=== PATIENT | female | born 1950 | race Caucasian/White ===

== ENCOUNTER 2023-12-30 18:54 | Inpatient (IN) | payer OTHER ==
[~2023-12-30] VITALS: Ht 162.6 cm; Wt 66.7 kg
[2023-12-30] MEDS ORDERED: CEFEPIME 1 GM VIAL ONE (19:13)
[2023-12-30] MEDS: IV NS 0.9% 1,000 ML BAG IV ONE (19:20)
[2023-12-30] MEDS: CEFEPIME 1 GM in IV D5W 50 ML IV ONE (19:36)
[2023-12-30 19:53] LABS: BASOPHILS % (AUTO) 0.1 % (0.0-2.0); EOSINOPHILS % (AUTO) 0.1 % (0.0-6.0); HEMATOCRIT 41 % (33-45); HEMOGLOBIN 13.7 g/dL (11.5-14.8); LYMPHOCYTES # (AUTO) 2.6 K/uL (0.8-4.8); LYMPHOCYTES % (AUTO) 11.5 % (20.0-44.0); MEAN CORPUSCULAR HEMOGLOBIN 30 PG (26.0-33.0); MEAN CORPUSCULAR HGB CONC 34 g/dl (31.0-36.0); MEAN CORPUSCULAR VOLUME 89 fL (82-100); MONOCYTES # (AUTO) 2.8 K/uL (0.1-1.30); MONOCYTES % (AUTO) 12.6 % (2.0-12.0); NEUTROPHILS % (AUTO) 75.7 % (43.0-81.0); PLATELET COUNT (AUTO) 306 K/uL (150-450); RED BLOOD CELL COUNT(AUTO) 4.58 MIL/uL (4.0-5.2); RED CELL DISTRIBUTION WIDTH 13.8 % (11.5-15.0); WHITE BLOOD COUNT (AUTO) 22.5 K/uL (4.3-11.0)
[2023-12-30 19:59] LABS: APPEARANCE,URINE CLEAR (CLEAR); BILIRUBIN,URINE 1+ (NEGATIVE); BLOOD, URINE NEGATIVE Ery/uL (NEGATIVE); COLOR,URINE YELLOW (YELLOW); KETONES,URINE 3+ mg/dL (NEGATIVE); LEUKOCYTE ESTERASE ,URINE NEGATIVE (NEGATIVE); NITRITE, URINE NEGATIVE (NEGATIVE); PROTEIN,URINE NEGATIVE (NEGATIVE); UGLUCOSE 3+ mg/dL (NEGATIVE)
[2023-12-30 20:03] LABS: ADD URINE CULTURE NO; BACTERIA,URINE None seen /HPF (None Seen); HYALINE CASTS, URINE Few /LPF (None Seen); MUCUS,URINE Few /LPF (None Seen); RBC,URINE 0-2 /HPF (0-2); WBC,URINE 0-2 /HPF (0-3)
[2023-12-30 20:07] LABS: INR 1.05 (0.91-1.10); PARTIAL THROMBOPLASTIN TIME 25.1 SEC (24.3-34.3); PROTHROMBIN TIME 11.1 SECS (9.2-11.1)
[2023-12-30 20:08] LABS: ALANINE AMINOTRANSFERASE 16 U/L (12-78); ALBUMIN 2.3 g/dL (3.4-5.0); ALKALINE PHOSPHATASE 83 U/L (46-116); ASPARTATE AMINOTRANSFERASE 16 U/L (15-37); BILIRUBIN,DIRECT 0.3 mg/dL (0.0-0.2); BILIRUBIN,TOTAL 1.2 mg/dL (0.2-1.0); CALCIUM, SERUM 8.8 mg/dL (8.5-10.1); CARBON DIOXIDE 21 mmol/L (21-32); CHLORIDE 101 mmol/L (98-107); CREATININE 0.7 mg/dL (0.6-1.3); GLUCOSE 209 mg/dL (74-106); POTASSIUM 3.3 mmol/L (3.5-5.1); SODIUM SERUM 135 mmol/L (136-145); TOTAL PROTEIN, SERUM 5.5 g/dL (6.4-8.2); UREA NITROGEN, BLOOD 21 mg/dL (7-18)
[2023-12-30 20:52] LABS: ANISOCYTOSIS 1+; LYMPHOCYTES % (MANUAL) 14 % (16-48); MONOCYTES % (MANUAL) 10 % (0-11.0); NEUTROPHILS % (MANUAL) 76 (42-76); PLATELET ESTIMATE ADEQUATE
[2023-12-30] MEDS ORDERED: ONDANSETRON HCL/PF 4 MG/2 ML VIAL IVP PRN (21:30)
[2023-12-30] MEDS ORDERED: Z GUARD REMEDY 4 OZ OINT TP PRN (21:30)
[2023-12-30] MEDS ORDERED: MAGNESIUM HYDROXIDE 30 ML UDC PO PRN (21:30)
[2023-12-30] MEDS ORDERED: MAG HYDROX/AL HYDROX/SIMETH 30 ML UDC PO PRN (21:30)
[2023-12-30] MEDS ORDERED: DEXTROSE 50%-WATER 50 ML DISP.SYRIN IV PRN (22:00)
[2023-12-30] MEDS: IV NS 0.9% 1,000 ML IV SCH (22:25)
[2023-12-30] MEDS: IV NS 0.9% 250 ML IV ONE (22:25)
[2023-12-30] MEDS ORDERED: POTASSIUM CHLORIDE 20 MEQ POWDER PACKET ONE (23:13)
[2023-12-30] MEDS: POTASSIUM CHLORIDE 20 MEQ POWDER PACKET PO ONE (23:14)
[2023-12-30] MEDS: ENOXAPARIN SODIUM 40 MG/0.4 ML DISP.SYRIN SQ SCH (23:24)
[2023-12-30] MEDS: BLOOD SUGAR DIAGNOSTIC 1 EACH STRIP IN SCH (23:31)
[2023-12-30] MEDS ORDERED: VANCOMYCIN 1 GM /D5W 250 ML PB IV ONE (23:35)
[2023-12-30] MEDS: INSULIN REGULAR, HUMAN 100 UNIT/ML 3 ML VIAL SQ PRN (23:38)
[2023-12-30] MEDS: VANCOMYCIN 1 GM in IV D5W 250 ML IV ONE (23:42)
[2023-12-31] VITALS (7 sets, daily range): BP systolic 100–139; BP diastolic 64–106; TEMP 97.7–99.3; O2SAT 97–100
[2023-12-31 06:15] LABS: BASOPHILS # (AUTO) 0.1 K/uL (0.0-0.2); BASOPHILS % (AUTO) 0.3 % (0.0-2.0); EOSINOPHILS % (AUTO) 0.1 % (0.0-6.0); HEMATOCRIT 43 % (33-45); HEMOGLOBIN 14.2 g/dL (11.5-14.8); LYMPHOCYTES # (AUTO) 1.1 K/uL (0.8-4.8); LYMPHOCYTES % (AUTO) 6.5 % (20.0-44.0); MEAN CORPUSCULAR HEMOGLOBIN 29 PG (26.0-33.0); MEAN CORPUSCULAR HGB CONC 33 g/dl (31.0-36.0); MEAN CORPUSCULAR VOLUME 88 fL (82-100); MONOCYTES # (AUTO) 0.8 K/uL (0.1-1.30); NEUTROPHILS # (AUTO) 14.7 K/uL (1.8-8.9); NEUTROPHILS % (AUTO) 88.1 % (43.0-81.0); PLATELET COUNT (AUTO) 295 K/uL (150-450); RED BLOOD CELL COUNT(AUTO) 4.88 MIL/uL (4.0-5.2); WHITE BLOOD COUNT (AUTO) 16.7 K/uL (4.3-11.0)
[2023-12-31 06:33] LABS: CALCIUM, SERUM 8.8 mg/dL (8.5-10.1); CARBON DIOXIDE 18 mmol/L (21-32); CHLORIDE 105 mmol/L (98-107); CREATININE 0.5 mg/dL (0.6-1.3); GLUCOSE 139 mg/dL (74-106); MAGNESIUM 2.1 mg/dL (1.8-2.4); PHOSPHORUS 2.1 mg/dL (2.5-4.9); POTASSIUM 3.5 mmol/L (3.5-5.1); SODIUM SERUM 139 mmol/L (136-145); UREA NITROGEN, BLOOD 14 mg/dL (7-18)
[2023-12-31] MEDS ORDERED: SITA100T PO (08:12)
[2023-12-31] MEDS ORDERED: OXYC10TA49 PO (08:12)
[2023-12-31] MEDS ORDERED: METF-442 PO (08:12)
[2023-12-31] MEDS ORDERED: DAPA10TA PO (08:12)
[2023-12-31] MEDS ORDERED: DILT120C87 PO (08:12)
[2023-12-31] MEDS ORDERED: SIMV-49 PO (08:12)
[2023-12-31] MEDS ORDERED: LOSA1TAB42 PO (08:12)
[2023-12-31] MEDS: VANCOMYCIN 750 MG in IV D5W 250 ML IV SCH (08:19)
[2023-12-31] MEDS: CEFEPIME 1 GM in IV D5W 50 ML IV SCH (08:19)
[2023-12-31] MEDS ORDERED: AMIODARONE 150 MG in IV D5W 100 ML IV ONE (08:30)
[2023-12-31] MEDS ORDERED: AMIODARONE 450 MG in IV D5W 250 ML IV PRN (08:30)
[2023-12-31] MEDS: AMIODARONE 150 MG in IV D5W 100 ML IV ONE (08:46)
[2023-12-31] MEDS: AMIODARONE 450 MG in IV D5W 241 ML IV PRN (09:07)
[2023-12-31] MEDS: ENOXAPARIN SODIUM 60 MG/0.6 ML DISP.SYRIN SQ SCH (09:25)
[2023-12-31] MEDS: NEUTRA PHOS 1 POWD.PACKET PO SCH (09:25)
[2023-12-31] MEDS: POTASSIUM CHLORIDE 20 MEQ TAB.PRT.SR PO SCH (09:25)
[2023-12-31] MEDS: ACETAMINOPHEN 325 MG TABLET PO PRN (13:33)
[2024-01-01] VITALS (17 sets, daily range): BP systolic 98–144; BP diastolic 60–100; TEMP 97.6–99.1; O2SAT 97–100
[2024-01-01 06:43] LABS: BASOPHILS % (AUTO) 0.2 % (0.0-2.0); EOSINOPHILS # (AUTO) 0.1 K/uL (0.0-0.7); EOSINOPHILS % (AUTO) 0.4 % (0.0-6.0); HEMATOCRIT 40 % (33-45); HEMOGLOBIN 13.4 g/dL (11.5-14.8); LYMPHOCYTES # (AUTO) 1.5 K/uL (0.8-4.8); LYMPHOCYTES % (AUTO) 10.1 % (20.0-44.0); MEAN CORPUSCULAR HEMOGLOBIN 29 PG (26.0-33.0); MEAN CORPUSCULAR HGB CONC 34 g/dl (31.0-36.0); MEAN CORPUSCULAR VOLUME 87 fL (82-100); MONOCYTES # (AUTO) 1.5 K/uL (0.1-1.30); MONOCYTES % (AUTO) 10.3 % (2.0-12.0); NEUTROPHILS # (AUTO) 11.6 K/uL (1.8-8.9); PLATELET COUNT (AUTO) 303 K/uL (150-450); RED BLOOD CELL COUNT(AUTO) 4.56 MIL/uL (4.0-5.2); RED CELL DISTRIBUTION WIDTH 14.1 % (11.5-15.0); WHITE BLOOD COUNT (AUTO) 14.7 K/uL (4.3-11.0)
[2024-01-01 06:47] LABS: ALANINE AMINOTRANSFERASE 33 U/L (12-78); ALBUMIN 1.9 g/dL (3.4-5.0); ALKALINE PHOSPHATASE 132 U/L (46-116); ASPARTATE AMINOTRANSFERASE 25 U/L (15-37); CALCIUM, SERUM 8.7 mg/dL (8.5-10.1); CARBON DIOXIDE 20 mmol/L (21-32); CHLORIDE 109 mmol/L (98-107); CREATININE 0.4 mg/dL (0.6-1.3); GLUCOSE 133 mg/dL (74-106); MAGNESIUM 2.1 mg/dL (1.8-2.4); PHOSPHORUS 1.9 mg/dL (2.5-4.9); POTASSIUM 3.5 mmol/L (3.5-5.1); SODIUM SERUM 142 mmol/L (136-145); TOTAL PROTEIN, SERUM 5.5 g/dL (6.4-8.2); UREA NITROGEN, BLOOD 11 mg/dL (7-18)
[2024-01-01] MEDS: IV NS 0.9% 1,000 ML IV PRN (08:44)
[2024-01-01] MEDS ORDERED: POTASSIUM PHOSPHATE MM 15 MMOL in IV NS 0.9% 250 ML IV SCH ×2 (09:30→10:00)
[2024-01-01] MEDS: DILTIAZEM HCL CD 240 MG PO SCH (09:44)
[2024-01-01] MEDS: K PHOS NEUTRAL 250 MG TABLET PO ONE (09:47)
[2024-01-01] MEDS: DIGOXIN INJ 0.5 MG/2 ML AMPUL IV SCH (11:34)
[2024-01-01] MEDS ORDERED: EPINEPHRINE (1:10,000) SYRINGE 1 MG/10 ML DISP.SYRIN ONE (16:30)
[2024-01-01] MEDS ORDERED: ATROPINE SULFATE 1 MG/10 ML DISP.SYRIN ONE (16:30)
[2024-01-01] MEDS ORDERED: CALCIUM CHLORIDE 1,000 MG/10 ML DISP.SYRIN ONE (16:30)
[2024-01-01] MEDS: FLECAINIDE ACETATE (100 MG) 100 MG TABLET PO SCH (17:22)
[2024-01-01] MEDS: APIXABAN 5 MG TABLET PO SCH (17:23)
[2024-01-01] MEDS ORDERED: APIX5TAB PO (19:12)
[2024-01-01] MEDS ORDERED: DILT240C88 PO (19:12)
[2024-01-01] MEDS ORDERED: FLEC100T3 PO (19:12)
[2024-01-01] MEDS ORDERED: VANCOMYCIN 1 GM in IV D5W 250ml IV SCH (20:00)
== END 2024-01-01 19:53 | disposition home or self-care (01) | DRG 871 ==
LOC: ER 18:57 → TELE1 21:38 → TELE-TD 21:45 → ICU 01-01 14:35
PROVIDERS: ATTEND Student in an Organized Health Care Education/Training Program
PROC: 5A2204Z Restoration of Cardiac Rhythm, Single (ICD-10-PCS; principal; 2024-01-01)
DX: A41.9 Sepsis, unspecified organism (principal); E43 Unspecified severe protein-calorie malnutrition; I48.91 Unspecified atrial fibrillation; E87.6 Hypokalemia; E11.9 Type 2 diabetes mellitus without complications; E78.5 Hyperlipidemia, unspecified; E86.0 Dehydration; E86.1 Hypovolemia; E88.09 Other disorders of plasma-protein metabolism, not elsewhere classified; F03.90 Unspecified dementia, unspecified severity, without behavioral disturbance, psychotic disturbance, mood disturbance, and anxiety; I10 Essential (primary) hypertension; Z20.822 Contact with and (suspected) exposure to COVID-19; R53.1 Weakness; Z68.25 Body mass index [BMI] 25.0-25.9, adult
CPT/HCPCS: 36415; 71045-TC; 80048-TC; 80053-TC; 80076-TC; 80202-TC; 81001; 82962-TC; 83605-TC; 83735-TC; 84100-TC; 84439-TC; 84443-TC; 84484-TC; 85025-TC; 85730-TC; 87040-TC; 87086-TC; 93307-TC; 93970-TC; A4223; A6403; G0378; J0171; J0282; J0461; J0692; J1160; J1650; J1815; J2704; J3370; J3371; J3490; J7030; J7050; J7060

== ENCOUNTER 2024-12-24 15:04 | Inpatient (IN) | payer OTHER ==
[~2024-12-24] VITALS: Ht 162.6 cm; Wt 57.2 kg
[~2024-12-24 15:04] MED LIST: APIX5TAB PO; DAPA10TA PO; DILT240C88 PO; FLEC100T3 PO; LOSA1TAB42 PO; METF-442 PO; OXYC10TA49 PO; SIMV-49 PO; SITA100T PO
[2024-12-24 15:46] LABS: PLATELET COUNT (AUTO) 331 K/uL (150-450); RED BLOOD CELL COUNT(AUTO) 4.95 MIL/uL (4.0-5.2); RED CELL DISTRIBUTION WIDTH 13.7 % (11.5-15.0); WHITE BLOOD COUNT (AUTO) 26.2 K/uL (4.3-11.0)
[2024-12-24] MEDS: IV NS 0.9% 500 ML BAG IV ONE (15:46)
[2024-12-24 16:03] LABS: APPEARANCE,URINE CLEAR (CLEAR); BLOOD, URINE Large Ery/uL (NEGATIVE); LEUKOCYTE ESTERASE ,URINE Negative (NEGATIVE); NITRITE, URINE NEGATIVE (NEGATIVE); UGLUCOSE Negative (NEGATIVE)
[2024-12-24 16:05] LABS: ADD URINE CULTURE NO; CALCIUM OXALATE CRYSTALS,UR Rare /HPF (None Seen); SQUAMOUS EPITHELIAL CELL,UR Moderate /HPF (None Seen)
[2024-12-24 16:06] LABS: ASPARTATE AMINOTRANSFERASE 26 U/L (15-37); CALCIUM, SERUM 9.2 mg/dL (8.5-10.1); CREATININE 0.9 mg/dL (0.6-1.3); NT-PRO BNP 961 pg/mL (0-125); TOTAL PROTEIN, SERUM 7.0 g/dL (6.4-8.2); UREA NITROGEN, BLOOD 28 mg/dL (7-18)
[2024-12-24 16:31] LABS: SODIUM SERUM 134 mmol/L (136-145)
[2024-12-24] MEDS ORDERED: PIPERACI/TAZO 3.375GM/D5W 50ML PB IV ONE (16:36)
[2024-12-24] MEDS: IV NS 0.9% 1,000 ML BAG IV ONE (16:47)
[2024-12-24] MEDS: PIPERACILLIN /TAZOBACTAM 3.375 G in IV D5W 50 ML IV ONE (16:48)
[2024-12-24] MEDS ORDERED: DILT240C88 PO (17:14)
[2024-12-24] MEDS ORDERED: FLEC100T2 PO (17:14)
[2024-12-24 18:38] VITALS: BP 166/90; TEMP 98.6; O2SAT 98
[2024-12-24] MEDS ORDERED: MAGNESIUM HYDROXIDE 30 ML UDC PO PRN (19:00)
[2024-12-24] MEDS ORDERED: ACETAMINOPHEN 325 MG TABLET PO PRN (19:00)
[2024-12-24] MEDS ORDERED: DOSING PER PHARMACY-ZOSYN IV 1 EA EA XX PRN (19:00)
[2024-12-24] MEDS ORDERED: ZOLPIDEM TARTRATE 5 MG TABLET PO PRN (19:00)
[2024-12-24] MEDS ORDERED: MAG HYDROX/AL HYDROX/SIMETH 30 ML UDC PO PRN (19:00)
[2024-12-24] MEDS ORDERED: oxyCODONE IR immediate release 5 MG TABLET PO PRN (19:30)
[2024-12-24] MEDS: IV NS 0.9% 1,000 ML IV PRN (20:11)
[2024-12-24 20:15] VITALS: BP 175/92; TEMP 98.2; O2SAT 99
[2024-12-24] MEDS: CEFTRIAXONE 1 G in IV D5W 50 ML IV SCH (20:42)
[2024-12-24] MEDS: METRONIDAZOLE 500MG/ NS 100ML 500 MG in PREMIX 1 EA IV SCH (21:41)
[2024-12-24] MEDS ORDERED: ZOSYN IVPB 3.375 G in IV D5W 50ml IV SCH (23:00)
[2024-12-24] MEDS: ONDANSETRON HCL/PF 4 MG/2 ML VIAL IVP PRN (23:15)
[2024-12-25 06:21] LABS: PLATELET COUNT (AUTO) 229 K/uL (150-450); RED BLOOD CELL COUNT(AUTO) 4.78 MIL/uL (4.0-5.2); RED CELL DISTRIBUTION WIDTH 13.5 % (11.5-15.0); WHITE BLOOD COUNT (AUTO) 19.7 K/uL (4.3-11.0)
[2024-12-25 06:37] LABS: CALCIUM, SERUM 8.6 mg/dL (8.5-10.1); CREATININE 0.8 mg/dL (0.6-1.3); PHOSPHORUS 2.1 mg/dL (2.5-4.9); UREA NITROGEN, BLOOD 16.0 mg/dL (7-18)
[2024-12-25 06:48] LABS: SODIUM SERUM 139.0 mmol/L (136-145)
[2024-12-25 07:00] VITALS: BP 126/73; TEMP 98.6; O2SAT 99
[2024-12-25] MEDS: APIXABAN 5 MG TABLET PO SCH (09:00)
[2024-12-25] MEDS: FLECAINIDE ACETATE (100 MG) 100 MG TABLET PO SCH (09:00)
[2024-12-25] MEDS: LINAGLIPTIN 5 MG TABLET PO SCH (09:00)
[2024-12-25] MEDS: LOSARTAN POTASSIUM 50 MG TABLET PO SCH (09:00)
[2024-12-25] MEDS: DILTIAZEM HCL CD 240 MG PO SCH (09:00)
[2024-12-25] MEDS: HYDROCHLOROTHIAZIDE 25 MG TABLET PO SCH (09:00)
[2024-12-25] MEDS: PANTOPRAZOLE 40 MG VIAL IV SCH (09:24)
[2024-12-25] MEDS: POTASSIUM CL. PREMIX PERIPHER. 50 ML IV SCH (09:24)
[2024-12-25] MEDS ORDERED: DEXTROSE 50%-WATER 50 ML DISP.SYRIN IV PRN (10:30)
[2024-12-25] MEDS: BLOOD SUGAR DIAGNOSTIC 1 EACH STRIP IN SCH (13:06)
[2024-12-25] MEDS: INSULIN REGULAR, HUMAN 100 UNIT/ML 3 ML VIAL SQ PRN (13:15)
[2024-12-25 16:00] VITALS: BP 144/74; TEMP 98.8; O2SAT 97
[2024-12-25] MEDS: Sodium Phosphate 15 MMOL in IV NS 0.9% 245 ML IV SCH (16:37)
[2024-12-25] MEDS: Z GUARD REMEDY 4 OZ OINT TP PRN (17:36)
[2024-12-25] MEDS: SIMVASTATIN 20 MG TABLET PO SCH (17:37)
[2024-12-25 20:00] VITALS: BP 147/86; TEMP 98.4; O2SAT 98
[2024-12-26 06:30] LABS: PLATELET COUNT (AUTO) 198 K/uL (150-450); RED BLOOD CELL COUNT(AUTO) 4.28 MIL/uL (4.0-5.2); RED CELL DISTRIBUTION WIDTH 13.2 % (11.5-15.0); WHITE BLOOD COUNT (AUTO) 14.0 K/uL (4.3-11.0)
[2024-12-26 06:51] LABS: CALCIUM, SERUM 8.4 mg/dL (8.5-10.1); CREATININE 0.7 mg/dL (0.6-1.3); PHOSPHORUS 1.8 mg/dL (2.5-4.9); SODIUM SERUM 144.0 mmol/L (136-145); UREA NITROGEN, BLOOD 11.0 mg/dL (7-18)
[2024-12-26 07:00] VITALS: BP 162/96; TEMP 97.9; O2SAT 99
[2024-12-26] MEDS: PANTOPRAZOLE 40 MG TABLET.DR PO SCH (09:54)
[2024-12-26] MEDS: POTASSIUM CHLORIDE 20 MEQ TAB.PRT.SR PO SCH (09:54)
[2024-12-26 09:55] VITALS: BP 162/96
[2024-12-26] MEDS ORDERED: METR500T PO (12:02)
[2024-12-26] MEDS ORDERED: CIPR-262 PO (12:02)
[2024-12-26] MEDS ORDERED: K PHOS NEUTRAL 250 MG TABLET PO ONE (16:00)
== END 2024-12-26 13:45 | disposition home or self-care (01) | DRG 872 ==
LOC: ER 15:07 → MED 17:44
PROVIDERS: ADMIT Student in an Organized Health Care Education/Training Program; ATTEND Student in an Organized Health Care Education/Training Program
DX: A41.9 Sepsis, unspecified organism (principal); E87.1 Hypo-osmolality and hyponatremia; E46 Unspecified protein-calorie malnutrition; E78.5 Hyperlipidemia, unspecified; E86.0 Dehydration; I48.91 Unspecified atrial fibrillation; K57.30 Diverticulosis of large intestine without perforation or abscess without bleeding; K52.9 Noninfective gastroenteritis and colitis, unspecified; E11.9 Type 2 diabetes mellitus without complications; E87.6 Hypokalemia; I10 Essential (primary) hypertension; K86.89 Other specified diseases of pancreas; Z79.01 Long term (current) use of anticoagulants; Z79.84 Long term (current) use of oral hypoglycemic drugs; Z20.822 Contact with and (suspected) exposure to COVID-19; R74.01 Elevation of levels of liver transaminase levels; I70.8 Atherosclerosis of other arteries; Z68.21 Body mass index [BMI] 21.0-21.9, adult
CPT/HCPCS: 36415; 71045-TC; 80048-TC; 80076-TC; 81001; 82962-TC; 83605-TC; 83690-TC; 83735-TC; 83880; 84100-TC; 84484-TC; 85025-TC; 87040-TC; 87086-TC; A4216; A4223; A9563; G0378; J0696; J1815; J2405; J2470; J2543; J3480; J7030; J7040; J7050; J7060